=== PATIENT | male | born 1985 | race Caucasian/White ===

== ENCOUNTER 2020-04-27 08:11 | Emergency (ER) | payer OTHER ==
[~2020-04-27] VITALS: Ht 175.3 cm; Wt 90.3 kg
[2020-04-27] MEDS ORDERED: LIPITOR20 MG PO (08:44)
--- NOTE | 2020-04-29 16:44 | EKG ---
[facility] [address] [place] [address] Signed Normal sinus rhythm with sinus arrhythmia Normal ECG No previous ECGs available Confirmed by ETHEL DUDLEY MD ([id number]) on 04/29/2020 4:43:59 PM Electronically Signed By: ETHEL DUDLEY MD 04/29/20 1644 PATIENT NAME: ORLANDO TRAORE Electrocardiogram DATE OF : 85 PHYSICIAN: ETHEL DUDLEY MD REPORT #: [id number] REPORT IS CONFIDENTIAL AND NOT TO BE RELEASED WITHOUT AUTHORIZATION
== END 2020-04-27 10:46 | disposition home or self-care (01) ==
LOC: ED 08:11
DX: R00.2 Palpitations (principal); E78.00 Pure hypercholesterolemia, unspecified; I10 Essential (primary) hypertension; G47.30 Sleep apnea, unspecified; Z79.899 Other long term (current) drug therapy
CPT/HCPCS: 71045; 80053; 83735; 84443; 84484; 85025; 93005; 99285-25

== ENCOUNTER 2021-02-22 16:44 | Emergency (ER) | payer OTHER ==
[~2021-02-22] VITALS: Ht 175.3 cm; Wt 83.3 kg
[~2021-02-22 16:44] MED LIST: LIPITOR20 MG PO
== END 2021-02-22 18:14 | disposition home or self-care (01) ==
LOC: ED 16:44
DX: S56.911A Strain of unspecified muscles, fascia and tendons at forearm level, right arm, initial encounter (principal); E78.00 Pure hypercholesterolemia, unspecified; I10 Essential (primary) hypertension; G47.30 Sleep apnea, unspecified; X50.0XXA Overexertion from strenuous movement or load, initial encounter; Z79.899 Other long term (current) drug therapy
CPT/HCPCS: 73080; 99283-25

== ENCOUNTER 2022-12-02 19:30 | Emergency (ER) | payer OTHER ==
[~2022-12-02] VITALS: Ht 175.3 cm; Wt 85.6 kg
--- OUTSIDE RECORDS SUMMARY | ~2022-12-02 | XMS | Continuity of Care Document ---
Demographics + + + | Address | [address] | | | [place] [address] | + + + | Preferred Language | Unknown | + + + | Marital Status | Never | + + + | Yazdanism Affiliation | Unknown | + + + | Race | White | + + + | Ethnic Group | Not or | + + + Author + + + | Author | [facility] | + + + | Organization | [facility] | + + + | Address | [address] | | | [place] [address] | + + + | Phone | | + + + Care Team Providers + + + + | Care Service Advisor Name | Role | Phone | + + + + Unavailable | Unavailable | + + + + Unavailable | Unavailable | + + + + Allergies No information. Encounters No information. Functional Status No information. Immunizations No information. Medications + + + + | date | description | facility | + + + + | 2021-12-16 00:00 | CIPROFLOXACIN HCL | [facility] | + + + + | 2021-12-16 00:00 | METRONIDAZOLE | [facility] | + + + + | 2021-12-16 00:00 | ONDANSETRON | [facility] | + + + + | 2021-12-17 00:00 | ATORVASTATIN | [facility] | + + + + Problems + + + + | date | description | facility | + + + + | 2021-12-16 00:00 | Diverticulitis | [facility] | + + + + Procedures No information. Results/Labs +--------+--------+ +---------+--------+---------+ | test | date | facility | value | unit | notes | +--------+--------+ +---------+--------+---------+ + + | Result panel 1 | + + + + + +--------+ + + | | 2021-12-16 | [facility] | 11.6 | (missing) | (missing) | | (unavailable | 16:13 [facility] | | | | + + + +--------+ + + + + | Result panel 2 | + + + + + +--------+ + + | | 2021-12-16 | [facility] | 77.2 | (missing) | (missing) | | (unavailable | 16:13 | [facility] | | | | + + + +--------+ + + + + | Result panel 3 | + + + + + +--------+ + + | | 2021-12-16 | [facility] | 14.1 | (missing) | (missing) | | (unavailable | 16:13 | [facility] | | | | + + + +--------+ + + + + | Result panel 4 | + + + + + +-------+ + + | | 2021-12-16 | [facility] | 8.0 | (missing) | (missing) | | (unavailable | 16:13 | [facility] | | | | + + + +-------+ + + + + | Result panel 5 | + + + + + +-------+ + + | | 2021-12-16 | [facility] | 0.2 | (missing) | (missing) | | (unavailable | 16:13 | [facility] | | | | + + + +-------+ + + + + | Result panel 6 | + + + + + +-------+ + + | | 2021-12-16 | [facility] | 0.5 | (missing) | (missing) | | (unavailable | 16:13 | [facility] | | | | + + + +-------+ + + + + | Result panel 7 | + + + + + +--------+ + + | | 2021-12-16 | [facility] | 5.22 | (missing) | (missing) | | (unavailable | 16:13 | [facility] | | | | + + + +--------+ + + + + | Result panel 8 | + + + + + +------+---------+ + | | 2021-12-16 | [facility] | 92 | mg/dL | (missing) | | (unavailable | 16:13 | [facility] | | | | + + + +------+---------+ + + + | Result panel 9 | + + + + + +------+---------+ + | | 2021-12-16 | [facility] | 12 | mg/dL | (missing) | | (unavailable | 16:13 | [facility] | | | | + + + +------+---------+ + + + | Result panel 10 | + + + + + +--------+ + + | | 2021-12-16 | [facility] | 14.9 | (missing) | (missing) | | (unavailable | 16:13 | [facility] | | | | + + + +--------+ + + + + | Result panel 11 | + + + + + +--------+---------+ + | | 2021-12-16 | [facility] | 1.18 | mg/dL | (missing) | | (unavailable | 16:13 | [facility] | | | | + + + +--------+---------+ + + + | Result panel 12 | + + + + + +------+ + + | | 2021-12-16 | [facility] | 82 | (missing) | (missing) | | (unavailable | 16:13 | [facility] | | | | + + + +------+ + + + + | Result panel 13 | + + + + + +---------+ + + | | 2021-12-16 | [facility] | 10.16 | (missing) | (missing) | | (unavailable | 16:13 | [facility] | | | | + + + +---------+ + + + + | Result panel 14 | + + + + + +-------+ + + | | 2021-12-16 | [facility] | 141 | (missing) | (missing) | | (unavailable | 16:13 | [facility] | | | | + + + +-------+ + + + + | Result panel 15 | + + + + + +-------+ + + | | 2021-12-16 | [facility] | 3.5 | (missing) | (missing) | | (unavailable | 16:13 | [facility] | | | | + + + +-------+ + + + + | Result panel 16 | + + + + + +-------+ + + | | 2021-12-16 | [facility] | 103 | (missing) | (missing) | | (unavailable | 16:13 | [facility] | | | | + + + +-------+ + + + + | Result panel 17 | + + + + + +------+ + + | | 2021-12-16 | [facility] | 28 | (missing) | (missing) | | (unavailable | 16:13 | [facility] | | | | + + + +------+ + + + + | Result panel 18 | + + + + + +--------+ + + | | 2021-12-16 | [facility] | 13.5 | (missing) | (missing) | | (unavailable | 16:13 | [facility] | | | | + + + +--------+ + + + + | Result panel 19 | + + + + + +-------+---------+ + | | 2021-12-16 | [facility] | 9.1 | mg/dL | (missing) | | (unavailable | 16:13 | [facility] | | | | + + + +-------+---------+ + + + | Result panel 20 | + + + + + +-------+ + + | | 2021-12-16 | [facility] | 7.6 | (missing) | (missing) | | (unavailable | 16:13 | [facility] | | | | + + + +-------+ + + + + | Result panel 21 | + + + + + +--------+ + + | | 2021-12-16 | [facility] | 45.4 | (missing) | (missing) | | (unavailable | 16:13 | [facility] | | | | + + + +--------+ + + + + | Result panel 22 | + + + + + +-------+ + + | | 2021-12-16 | [facility] | 4.2 | (missing) | (missing) | | (unavailable | 16:13 [facility] | | | | + + + +-------+ + + + + | Result panel 23 | + + + + + +-------+ + + | | 2021-12-16 | [facility] | 3.4 | (missing) | (missing) | | (unavailable | 16:13 | [facility] | | | | + + + +-------+ + + + + | Result panel 24 | + + + + + +--------+ + + | | 2021-12-16 | [facility] | 1.24 | (missing) | (missing) | | (unavailable | 16:13 | [facility] | | | | + + + +--------+ + + + + | Result panel 25 | + + + + + +-------+ + + | | 2021-12-16 | [facility] | 0.8 | (missing) | (missing) | | (unavailable | 16:13 | [facility] | | | | + + + +-------+ + + + + | Result panel 26 | + + + + + +------+ + + | | 2021-12-16 | [facility] | 14 | (missing) | (missing) | | (unavailable | 16:13 | [facility] | | | | + + + +------+ + + + + | Result panel 27 | + + + + + +------+ + + | | 2021-12-16 | [facility] | 25 | (missing) | (missing) | | (unavailable | 16:13 | [facility] | | | | + + + +------+ + + + + | Result panel 28 | + + + + + +------+ + + | | 2021-12-16 | [facility] | 60 | (missing) | (missing) | | (unavailable | 16:13 | [facility] | | | | + + + +------+ + + + + | Result panel 29 | + + + + + +------+ + + | | 2021-12-16 | [facility] | 35 | (missing) | (missing) | | (unavailable | 16:13 | [facility] | | | | + + + +------+ + + + + | Result panel 30 | + + + + + +--------+ + + | | 2021-12-16 | [facility] | 87.0 | (missing) | (missing) | | (unavailable | 16:13 | [facility] | | | | + + + +--------+ + + + + | Result panel 31 | + + + + + +--------+ + + | | 2021-12-16 | [facility] | 28.6 | (missing) | (missing) | | (unavailable | 16:13 | [facility] | | | | + + + +--------+ + + + + | Result panel 32 | + + + + + +--------+ + + | | 2021-12-16 | [facility] | 32.8 | (missing) | (missing) | | (unavailable | 16:13 | [facility] | | | | + + + +--------+ + + + + | Result panel 33 | + + + + + +--------+ + + | | 2021-12-16 | [facility] | 13.7 | (missing) | (missing) | | (unavailable | 16:13 | [facility] | | | | + + + +--------+ + + + + | Result panel 34 | + + + + + +-------+ + + | | 2021-12-16 | [facility] | 346 | (missing) | (missing) | | (unavailable | 16:13 | [facility] | | | | + + + +-------+ + + + + | Result panel 35 | + + + + + + + + + | | 2021-12-16 | [facility] | NEGATIVE | (missing) | (missing) | | (unavailable | 16:35 | [facility] | | | | + + + + + + + + + | Result panel 36 | + + + + + + + + + | | 2021-12-16 | [facility] | NEGATIVE | (missing) | (missing) | | (unavailable | 16:35 | [facility] | | | | + + + + + + + + + | Result panel 37 | + + + + + + + + + | | 2021-12-16 | [facility] | NEGATIVE | (missing) | (missing) | | (unavailable | 16:35 | [facility] | | | | + + + + + + + + + | Result panel 38 | + + + + + + + + + | | 2021-12-16 | [facility] | NEGATIVE | (missing) | (missing) | | (unavailable | 16:35 | [facility] | | | | + + + + + + + + + | Result panel 39 | + + + + + + + + + | | 2021-12-16 | [facility] | YELLOW | (missing) | (missing) | | (unavailable | 17:56 | [facility] | | | | + + + + + + + + + | Result panel 40 | + + + + + +---------+ + + | | 2021-12-16 | [facility] | CLEAR | (missing) | (missing) | | (unavailable | 17:56 | [facility] | | | | + + + +---------+ + + + + | Result panel 41 | + + + + + + + + + | | 2021-12-16 | [facility] | NEGATIVE | (missing) | (missing) | | (unavailable | 17:56 | [facility] | | | | + + + + + + + + + | Result panel 42 | + + + + + + + + + | | 2021-12-16 | [facility] | NEGATIVE | (missing) | (missing) | | (unavailable | 17:56 | [facility] | | | | + + + + + + + + + | Result panel 43 | + + + + + + + + + | | 2021-12-16 | [facility] | NEGATIVE | (missing) | (missing) | | (unavailable | 17:56 | [facility] | | | | + + + + + + + + + | Result panel 44 | + + + + + +---------+ + + | | 2021-12-16 | [facility] | 1.025 | (missing) | (missing) | | (unavailable | 17:56 | [facility] | | | | + + + +---------+ + + + + | Result panel 45 | + + + + + + + + + | | 2021-12-16 | [facility] | NEGATIVE | (missing) | (missing) | | (unavailable | 17:56 | [facility] | | | | + + + + + + + + + | Result panel 46 | + + + + + +-------+ + + | | 2021-12-16 | [facility] | 6.0 | (missing) | (missing) | | (unavailable | 17:56 | [facility] | | | | + + + +-------+ + + + + | Result panel 47 | + + + + + + + + + | | 2021-12-16 | [facility] | NEGATIVE | (missing) | (missing) | | (unavailable | 17:56 | [facility] | | | | + + + + + + + + + | Result panel 48 | + + + + + + + + + | | 2021-12-16 | [facility] | NORMAL | (missing) | (missing) | | (unavailable | 17:56 | [facility] | | | | + + + + + + + + + | Result panel 49 | + + + + + + + + + | | 2021-12-16 | [facility] | NEGATIVE | (missing) | (missing) | | (unavailable | 17:56 | [facility] | | | | + + + + + + + + + | Result panel 50 | + + + + + + + + + | | 2021-12-16 | [facility] | NEGATIVE | (missing) | (missing) | | (unavailable | 17:56 | [facility] | | | | + + + + + + + + + | Result panel 51 | + + + + + + + + + | | 2021-12-16 | [facility] | CLEAN CATCH | (missing) | (missing) | | (unavailable | 17:56 | [facility] | | | | + + + + + + + Social History No information. Vital Signs + + + +---------+ | date | measurement | value | units | + + + +---------+ | 2021-12-16 00:00 | BMI | 27.9 | kg/m2 | + + + +---------+ | 2021-12-16 00:00 | BP_diastolic | 76 | mmHg | + + + +---------+ | 2021-12-16 00:00 | BP_systolic | 121 | mmHg | + + + +---------+ | 2021-12-16 00:00 | heart_rate | 57 | /min | + + + +---------+ | 2021-12-16 00:00 | height_metric | 175.26 | cm | + + + +---------+ | 2021-12-16 00:00 | height_standard | 69 | in | + + + +---------+ | 2021-12-16 00:00 | o2_saturation | 98 | % | + + + +---------+ | 2021-12-16 00:00 | respiration_rate | 18 | /min | + + + +---------+ | 2021-12-16 00:00 | temperature_metric | 36.94 | C | | | | | | + + + +---------+ | 2021-12-16 00:00 | | 98.5 | F | | | temperature_standar | | | | | d | | | + + + +---------+ | 2021-12-16 00:00 | weight_metric | 85.59 | kg | + + + +---------+ | 2021-12-16 00:00 | weight_standard | 188.69 | lb | + + + +---------+"
--- OUTSIDE RECORDS SUMMARY | ~2022-12-02 | XMS | Continuity of Care Document ---
Demographics + + + | Address | [address] | | | [place] [address] | + + + | Preferred Language | Unknown | + + + | Marital Status | Never | + + + | Advent Affiliation | Unknown | + + + | Race | White | + + + | Ethnic Group | Not or | + + + Author + + + | Author | [facility] | + + + | Organization | [facility] | + + + | Address | [address] | | | [place] [address] | + + + | Phone | | + + + Care Team Providers + + + + | Care Pipe Organ Mechanic Apprentice Name | Role | Phone | + + + + Unavailable | Unavailable | + + + + Unavailable | Unavailable | + + + + Allergies No information. Encounters No information. Functional Status No information. Immunizations No information. Medications + + + + | date | description | facility | + + + + | 2021-12-16 00:00 | CIPROFLOXACIN HCL | [facility] | + + + + | 2021-12-16 00:00 | METRONIDAZOLE | [facility] | + + + + | 2021-12-16 00:00 | ONDANSETRON | [facility] | + + + + | 2021-12-17 00:00 | ATORVASTATIN | [facility] | + + + + Problems + + + + | date | description | facility | + + + + | 2021-12-16 00:00 | Diverticulitis | [facility] | + + + + Procedures No information. Results/Labs +--------+--------+ +---------+--------+---------+ | test | date | facility | value | unit | notes | +--------+--------+ +---------+--------+---------+ + + | Result panel 1 | + + + + + +--------+ + + | | 2021-12-16 | [facility] | 11.6 | (missing) | (missing) [...] (missing) | | (unavailable | 17:56 | [facility] | | | | | ) | [...]
[~2022-12-02 19:30] MED LIST changes: +CIPRO500 MG PO; +METRONIDAZOLE500 MG PO; +ONDANSETRON ODT8 MG PO
[2022-12-02 22:07] VITALS: BP 104/64
== END 2022-12-02 22:07 | disposition home or self-care (01) ==
LOC: ED 19:30
DX: R10.32 Left lower quadrant pain (principal); Z79.899 Other long term (current) drug therapy
CPT/HCPCS: 36415; 74177; 80053; 81003; 83690; 85025; J2405; Q9967